=== PATIENT | female | born 1950 | race African-American/Black ===

== ENCOUNTER 2022-09-25 17:47 | Emergency (ER) | payer OTHER ==
[~2022-09-25] VITALS: Ht 160 cm; Wt 102.7 kg
[2022-09-25 18:11] LABS: BASOPHILS % (AUTO) 0.9 % (0.0-2.0); EOSINOPHILS % (AUTO) 2.8 % (1.0-6.0); HEMATOCRIT 37.3 % (36-46); HEMOGLOBIN 11.5 g/dL (12.0-16.0); LYMPHOCYTES # (AUTO) 1.8 K/uL (1.0-4.8); LYMPHOCYTES % (AUTO) 21.5 % (22.0-44.0); MEAN CORPUSCULAR HEMOGLOBIN 21.7 pg (26.0-34.0); MEAN CORPUSCULAR HGB CONC 30.9 G/dL (31.0-37.0); MEAN CORPUSCULAR VOLUME 70 fL (80-100); MONOCYTES # (AUTO) 0.6 K/uL (0.1-1.0); MONOCYTES % (AUTO) 6.7 % (2.0-9.0); NEUTROPHILS # (AUTO) 5.8 K/uL (1.8-7.7); NEUTROPHILS % (AUTO) 68.1 % (40.0-70.0); PLATELET COUNT (AUTO) 199 K/uL (150-450)
[2022-09-25] MEDS ORDERED: IOHEXOL 350 MG/ML 100 ML VIAL ONE (18:18)
[2022-09-25] MEDS ORDERED: SODIUM CHLORIDE 0.9% 100 ML ONE (18:18)
[2022-09-25 18:19] LABS: INR 1.2 (0.9-1.1); PROTHROMBIN TIME 12.2 SEC (9.4-11.6)
[2022-09-25 18:20] LABS: CALCIUM, TOTAL 9.5 mg/dL (8.8-10.5); CREATININE 1.84 mg/dL (0.60-1.30); POTASSIUM 3.9 mmol/L (3.5-5.1)
[2022-09-25 18:26] LABS: BILIRUBIN,TOTAL 0.5 mg/dL (0.1-1.0); TOTAL PROTEIN, SERUM 7.6 g/dL (6.4-8.2)
[2022-09-25] MEDS ORDERED: ASPIRIN 325 MG TABLET PO ONE (18:30)
[2022-09-25] MEDS ORDERED: LACT1CAP79 PO (18:56)
[2022-09-25] MEDS ORDERED: CHOL25TA4 PO (18:56)
[2022-09-25] MEDS ORDERED: NPH,100V SQ (18:56)
[2022-09-25] MEDS ORDERED: CARV12 PO (18:56)
[2022-09-25] MEDS ORDERED: FURO40 PO (18:56)
[2022-09-25] MEDS ORDERED: ISOS10TA16 PO (18:56)
[2022-09-25] MEDS ORDERED: ATOR40TA28 PO (18:56)
[2022-09-25] MEDS ORDERED: APIX2.5T PO (18:56)
[2022-09-25] MEDS ORDERED: ATORVASTATIN CALCIUM 40 MG TABLET PO ONE (21:30)
[2022-09-25] MEDS ORDERED: CEFPODOXIME PROXETIL 200 MG TABLET PO ONE (21:30)
[2022-09-25] MEDS ORDERED: ISOSORBIDE DINITRATE 10 MG TABLET PO ONE (21:30)
[2022-09-25] MEDS ORDERED: CARVEDILOL 6.25 MG TABLET PO ONE (21:30)
[2022-09-25] MEDS ORDERED: DOXYCYCLINE HYCLATE 100 MG TABLET PO ONE (21:30)
[2022-09-25 21:45] VITALS: BP 186/85
== END 2022-09-25 22:09 | disposition short-term general hospital (02) ==
LOC: EMS 17:51
DX: I63.9 Cerebral infarction, unspecified (principal); R77.8 Other specified abnormalities of plasma proteins
CPT/HCPCS: 99291; 70450; 71045; 80053; 84484; 85025; 85610; 36415; 93005; 70496; Q9967; J7050

== ENCOUNTER 2024-05-18 14:46 | Inpatient (IN) | payer OTHER ==
[~2024-05-18] VITALS: Ht 167.6 cm; Wt 91.9 kg
[2024-05-18] VITALS (8 sets, daily range): BP systolic 136–149; BP diastolic 58–62; PULSE 78–107; RESP 17–34; TEMP 97.5–97.6; O2SAT 94–100
[~2024-05-18 14:46] MED LIST: APIX2.5T PO; ATOR40TA28 PO; CARV12 PO; CHOL25TA4 PO; FURO40TA6 PO; ISOS10TA16 PO; LACT1CAP79 PO; NPH,100V SQ
[2024-05-18] MEDS ORDERED: 0.9% SODIUM CHLORIDE 15 ML NEB SOLUTION NEB ONE (14:59)
[2024-05-18] MEDS ORDERED: 0.9% SODIUM CHLORIDE 10 ML SYRINGE IVP PRN (15:00)
[2024-05-18] MEDS: ALBUTEROL SULFATE 2.5 MG/0.5 ML 5 ML NEB SOLUTION NEB ONE (15:00)
[2024-05-18] MEDS: IPRATROPIUM BROMIDE 0.5 MG/2.5 ML NEB SOLUTION NEB ONE (15:00)
[2024-05-18] MEDS ORDERED: APIX5TAB PO (15:06)
[2024-05-18] MEDS ORDERED: AMLO5TAB66 PO (15:06)
[2024-05-18] MEDS ORDERED: GABA-1181 PO (15:06)
[2024-05-18] MEDS ORDERED: FURO20TA4 PO (15:06)
[2024-05-18] MEDS ORDERED: ISOS60TA77 PO (15:06)
[2024-05-18] MEDS ORDERED: METO-391 PO (15:06)
[2024-05-18 15:11] LABS: COVID AG,FIA SOURCE NASAL SWAB
[2024-05-18 15:14] LABS: BASOPHILS % (AUTO) 1.3 % (0.0-2.0); EOSINOPHILS % (AUTO) 2.7 % (1.0-6.0); HEMATOCRIT 39.8 % (36-46); HEMOGLOBIN 12.4 g/dL (12.0-16.0); LYMPHOCYTES # (AUTO) 2.2 K/uL (1.0-4.8); MEAN CORPUSCULAR HEMOGLOBIN 22.7 pg (26.0-34.0); MEAN CORPUSCULAR HGB CONC 31.3 G/dL (31.0-37.0); MEAN CORPUSCULAR VOLUME 73 fL (80-100); MONOCYTES # (AUTO) 0.4 K/uL (0.1-1.0); MONOCYTES % (AUTO) 6.1 % (2.0-9.0); NEUTROPHILS # (AUTO) 3.5 K/uL (1.8-7.7); NEUTROPHILS % (AUTO) 54.9 % (40.0-70.0); PLATELET COUNT (AUTO) 200 K/uL (150-450); RED BLOOD CELL COUNT(AUTO) 5.49 MIL/uL (4.00-5.20); RED CELL DISTRIBUTION WIDTH 17.3 % (11.5-14.5); WHITE BLOOD COUNT (AUTO) 6.4 K/uL (4.5-11.0)
[2024-05-18 15:23] LABS: ANION GAP 6 mmol/L (8-16); CARBON DIOXIDE 29 mmol/L (22-29); CHLORIDE 107 mmol/L (98-107); CREATININE 1.81 mg/dL (0.60-1.30); GLOMERULAR FILTR. RATE CALC 33 mL/min (>60); GLUCOSE,RANDOM 226 mg/dL (70-110); POTASSIUM 4.9 mmol/L (3.5-5.1); SODIUM SERUM 142 mmol/L (136-145); UREA NITROGEN, BLOOD 47 mg/dL (7-18)
[2024-05-18] MEDS: MethylPREDNISolone SOD SUCC 125 MG/2 ML VIAL IVP ONE (15:26)
[2024-05-18] MEDS: CefTRIAXone 1 GM/DEXTROSE 50 ML IV ONE (15:27)
[2024-05-18 15:30] LABS: RBC MORPHOLOGY COMMENT ABNORMAL RBC MORPH
[2024-05-18 15:31] LABS: PROTHROMBIN TIME 10.9 SEC (9.4-11.6)
[2024-05-18 15:32] LABS: LACTIC ACID 1.7 mmol/L (0.4-2.0); TROPONIN I-HIGH SENSITIVITY 23 ng/L (<51)
[2024-05-18 15:44] LABS: SARS-COV2 (COVID) ANTIGEN,FIA Negative (Negative)
[2024-05-18] MEDS: SODIUM CHLORIDE 0.9% 250 ML IV ONE ×2 (15:50→21:16)
[2024-05-18] MEDS: 0.9% SODIUM CHLORIDE 10 ML SYRINGE IVP PRN (15:52)
[2024-05-18 16:02] LABS: INFLUENZA TYPE A NEGATIVE FOR TYPE A (NEGATIVE); INFLUENZA TYPE B NEGATIVE FOR TYPE B (NEGATIVE)
[2024-05-18] MEDS ORDERED: TIOT4MIS2 IH (16:22)
[2024-05-18] MEDS ORDERED: UNKNOWN INSULIN SQ (16:22)
[2024-05-18] MEDS ORDERED: ALBU18HF12 IH (16:22)
[2024-05-18] MEDS: FUROSEMIDE 40 MG/4 ML VIAL IVP ONE (16:42)
[2024-05-18] MEDS ORDERED: IPRATROPIUM BROMIDE 0.5 MG/2.5 ML NEB SOLUTION NEB PRN (17:00)
[2024-05-18] MEDS ORDERED: ALBUTEROL SULFATE 2.5 MG/0.5 ML NEB SOLUTION NEB PRN (17:00)
[2024-05-18 17:19] LABS: APPEARANCE,URINE HAZY (CLEAR); BILIRUBIN,URINE NEGATIVE (NEGATIVE); COLOR,URINE YELLOW (YELLOW); GLUCOSE, URINE (UA) TRACE mg/dL (NEGATIVE); KETONES,URINE NEGATIVE (NEGATIVE); LEUKOCYTE ESTERASE ,URINE LARGE (NEGATIVE); NITRATE,URINE POSITIVE (NEGATIVE); OCCULT BLOOD,URINE SMALL (NEGATIVE); PH,URINE 6.5 (5.0-8.0); PROTEIN,URINE 300-600,SEE CONFIRM mg/dL (NEGATIVE); UROBILINOGEN,URINE <=1.0 mg/dL (<=1.0)
[2024-05-18 17:27] LABS: SULFOSALICYLIC ACID,URINE 4+ (Negative)
[2024-05-18 17:28] LABS: BACTERIA,URINE Many /HPF (None Seen); WBC,URINE 51-100 /HPF (0-5)
[2024-05-18] MEDS: AZITHROMYCIN 500 MG/NS 250 ML IV SCH (17:55)
[2024-05-18 18:03] LABS: ABG BASE EXCESS -4.5 mmol/L (-2.0-3.0); ABG CARBOXYHEMOGLOBIN 1.6 % (0.5-1.5); ABG METHEMOGLOBIN 0.3 % (0.0-1.5); ABG OXYGEN CONTENT 15.9 mL/dL (15.0-23.0); ABG OXYHEMOGLOBIN 94.2 % (94.0-98.0); ABG PCO2 39 mmHg (32.0-45.0); ABG PH 7.349 (7.350-7.450); ABG TOTAL HEMOGLOBIN 11.9 G/dL (12.0-16.0); ALLEN TEST, BLOOD GAS Positive; PO2, ARTERIAL BG 87.2 mmHg (83.0-108.0); SITE, BLOOD GAS LFT RADIAL; SOURCE, BLOOD GAS ARTERIAL; TEMPERATURE, FAHRENHEIT, BG 98.4 FAHREN (96.0-98.6)
[2024-05-18 18:04] LABS: ABG A-A DIFF O2 225.3 mmHg (10-20.0); O2 DEVICE,BLOOD GAS BIPAP (ROOM AIR)
[2024-05-18 20:01] LABS: GLUCOMETER DEV NAME(LOC) 5S.1D; GLUCOSE,POINT OF CARE 306 MG/DL (70-110)
[2024-05-18] MEDS ORDERED: DEXTROSE 50%-WATER 25 GM/50 ML SYRINGE IVP PRN (20:30)
[2024-05-18] MEDS: INSULIN LISPRO 100 UNITS/ML SQ PRN (21:04)
[2024-05-18] MEDS: INSULIN GLARGINE,HUM.REC.ANLOG 100 UNITS/ML SQ SCH (21:04)
[2024-05-18] MEDS: IPRATROPIUM BROMIDE 0.5 MG/2.5 ML NEB SOLUTION NEB SCH (21:10)
[2024-05-18] MEDS: ALBUTEROL SULFATE 2.5 MG/0.5 ML NEB SOLUTION NEB SCH (21:10)
[2024-05-18] MEDS: HEPARIN SODIUM,PORCINE 5,000 UNITS/ML VIAL SQ SCH (23:58)
[2024-05-19] VITALS (14 sets, daily range): BP systolic 136–149; BP diastolic 62–86; PULSE 73–84; RESP 19–25; TEMP 97.7–98.6; O2SAT 94–100
[2024-05-19] MEDS: ACETAMINOPHEN 325 MG TABLET PO PRN (00:03)
[2024-05-19 01:31] LABS: GLUCOMETER DEV NAME(LOC) 5S.1D; GLUCOSE,POINT OF CARE 342 MG/DL (70-110)
[2024-05-19] MEDS ORDERED: INFLUENZA VIRUS VACCINE TVS (6MO+) 2024-25/PF 45 MCG/0.5 ML SYRINGE IM. ONE (05:30)
[2024-05-19 07:43] LABS: CALCIUM, TOTAL 8.8 mg/dL (8.8-10.5); MAGNESIUM 2.4 mg/dL (1.80-2.40); POTASSIUM 4.5 mmol/L (3.5-5.1)
[2024-05-19 07:47] LABS: BASOPHILS % (AUTO) 0.2 % (0.0-2.0); EOSINOPHILS % (AUTO) 0 % (1.0-6.0); HEMATOCRIT 35.3 % (36-46); LYMPHOCYTES # (AUTO) 0.4 K/uL (1.0-4.8); LYMPHOCYTES % (AUTO) 3.9 % (22.0-44.0); MEAN CORPUSCULAR HEMOGLOBIN 22.6 pg (26.0-34.0); MEAN CORPUSCULAR HGB CONC 31.1 G/dL (31.0-37.0); MEAN CORPUSCULAR VOLUME 73 fL (80-100); MONOCYTES # (AUTO) 0.3 K/uL (0.1-1.0); MONOCYTES % (AUTO) 2.8 % (2.0-9.0); NEUTROPHILS # (AUTO) 10.3 K/uL (1.8-7.7); PLATELET COUNT (AUTO) 177 K/uL (150-450); RED BLOOD CELL COUNT(AUTO) 4.85 MIL/uL (4.00-5.20); RED CELL DISTRIBUTION WIDTH 17.1 % (11.5-14.5); WHITE BLOOD COUNT (AUTO) 11.1 K/uL (4.5-11.0)
[2024-05-19 07:51] LABS: NEUTROPHILS % (AUTO) 93.1 % (40.0-70.0)
[2024-05-19] MEDS: MethylPREDNISolone SOD SUCC 125 MG/2 ML VIAL IVP SCH (08:37)
[2024-05-19 08:41] LABS: GLUCOMETER DEV NAME(LOC) 5N.2C; GLUCOSE,POINT OF CARE 397 MG/DL (70-110)
[2024-05-19 08:41] LABS: GLUCOMETER DEV NAME(LOC) 5N.2C; GLUCOSE,POINT OF CARE 405 MG/DL (70-110)
[2024-05-19 09:01] LABS: RBC MORPHOLOGY COMMENT ABNORMAL RBC MORPH
[2024-05-19] MEDS ORDERED: DEXTROSE 50%-WATER 25 GM/50 ML SYRINGE IVP PRN (11:30)
[2024-05-19 11:35] LABS: GLUCOMETER DEV NAME(LOC) 5N.1D; GLUCOSE,POINT OF CARE 416 MG/DL (70-110)
[2024-05-19] MEDS: INSULIN LISPRO 100 UNITS/ML SQ PRN (11:36)
[2024-05-19] MEDS: INSULIN LISPRO 100 UNITS/ML SQ ONE (12:40)
[2024-05-19 12:41] LABS: GLUCOMETER DEV NAME(LOC) 5N.1D; GLUCOSE,POINT OF CARE 411 MG/DL (70-110)
[2024-05-19] MEDS: CefTRIAXone 1 GM/DEXTROSE 50 ML IV SCH (15:01)
[2024-05-19 17:11] LABS: GLUCOMETER DEV NAME(LOC) 5N.2C; GLUCOSE,POINT OF CARE 205 MG/DL (70-110)
== END 2024-05-19 21:45 | disposition short-term general hospital (02) | DRG 189 ==
LOC: EMS 14:46 → EDH 17:01 → 5N 18:55
PROVIDERS: ADMIT Internal Medicine; ATTEND Internal Medicine
PROC: 5A09357 Assistance with Respiratory Ventilation, Less than 24 Consecutive Hours, Continuous Positive Airway Pressure (ICD-10-PCS; principal; 2024-05-18)
DX: J96.01 Acute respiratory failure with hypoxia (principal); J12.9 Viral pneumonia, unspecified; J15.9 Unspecified bacterial pneumonia; J44.0 Chronic obstructive pulmonary disease with (acute) lower respiratory infection; E87.20 Acidosis, unspecified; I13.0 Hypertensive heart and chronic kidney disease with heart failure and stage 1 through stage 4 chronic kidney disease, or unspecified chronic kidney disease; I50.20 Unspecified systolic (congestive) heart failure; J44.1 Chronic obstructive pulmonary disease with (acute) exacerbation; J20.8 Acute bronchitis due to other specified organisms; Z20.822 Contact with and (suspected) exposure to COVID-19; E11.22 Type 2 diabetes mellitus with diabetic chronic kidney disease; E66.9 Obesity, unspecified; N18.30 Chronic kidney disease, stage 3 unspecified; E11.65 Type 2 diabetes mellitus with hyperglycemia; Z86.73 Personal history of transient ischemic attack (TIA), and cerebral infarction without residual deficits; Z79.01 Long term (current) use of anticoagulants; Z68.32 Body mass index [BMI] 32.0-32.9, adult; Z79.899 Other long term (current) drug therapy
CPT/HCPCS: 36600; 51702; 71045; 80048; 81001; 81002; 82805; 82962; 83605; 83735; 83880; 84145; 84484; 85025; 85610; 87040; 87077; 87086; 87186; 87804; 93005; 93306; 94640; 94644; 94660; 99285; J0456; J0696; J1644; J1815; J1940; J2919; J7040; 36415-L1; 36415-TC; J7613